=== PATIENT | male | born 1970 | race Caucasian/White ===

== ENCOUNTER 2020-05-05 13:56 | Emergency (ER) | payer SELFPAY ==
[2020-05-05] VITALS (7 sets, daily range): BP systolic 113–157; BP diastolic 86–106; PULSE 101–117; RESP 12–18; TEMP 36.7; O2SAT 96–100
--- NOTE | ~2020-05-05 | CT_ITS ---
EXAMINATION: CTA chest DATE: 05/05/2020 16:45 [employer] SALES ENERGY ADVISOR INDICATION: Chest pain TECHNIQUE: Computed tomographic angiography (CTA) of the chest was performed with 100 mL Omnipaque-35 0 intravenous contrast. The dose-length product was 257.03 mGy-cm. Maximum intensity projection 3D-re constructions of the aorta and other arteries were constructed by the technologist on a separate work station. Automated exposure control and iterative reconstruction technique were employed. COMPARISON: None. FINDINGS: Normal caliber thoracic aorta without aneurysm or dissection. Heart size normal. Small hiat al hernia. No thoracic lymphadenopathy. No significant pleural or pericardial effusion. Upper abdomen is unremarkable. No focal airspace consolidation. No pneumothorax. No endobronchial lesions. No susp icious pulmonary nodules or masses. There is lower cervical spondylosis. IMPRESSION: 1. Unremarkable CT angiogram of the chest. No evidence for aortic aneurysm or dissection. Reviewed, dictated and finalized at location A. R SALES ENERGY ADVISOR IMPRESSION: 1. Unremarkable CT angiogram of the chest. No evidence for aortic aneurysm or d issection.
--- NOTE | 2020-05-05 14:27 | ECG_ITS ---
Measurements Intervals [place] Rate: 114 P: 76 AL: 145 QRS: 91 QRSD: 108 T: 55 QT: 309 QTc: 426 Interpretive Statements SINUS TACHYCARDIA RIGHT AXIS DEVIATION INCOMPLETE RIGHT BUNDLE BRANCH BLOCK CANNOT RULE OUT SEPTAL INFARCT, AGE INDETERMINATE BASELINE ARTIFACT- I, III, AVL, AVF, V1 ABNORMAL ECG Electronically Signed On 05-05-2020 14:48:49 [place] by Luis Allison D.O.
--- NOTE | 2020-05-05 14:31 | ED.ARRPALP ---
HPI - Arrhythmia/Palpitations General Chief Complaint: Psychiatric Symptoms <Ross Low MD - Last Filed: 05/06/20 17:45> Stated Complaint: CP <Ross Low MD - Last Filed: 05/06/20 17:45> Time Seen by Provider: 05/05/20 14:07 <Ross Low MD - Last Filed: 05/06/20 17:45> History of Present Illness HPI narrative: History limited by poor historian and intoxication 49 yo male brought in by EMS for palpitations. He reports that he has had 3 days of palpitations, chest pain, abdominal pain, and vomiting. He also reports that he has been drinking for the past 3 days. He has not done anything to try and treat his symptoms. He was apparently being arrested when he decided that he needed to be seen for these symptoms. <Ross Low MD - Last Filed: 05/06/20 17:45> Related Data Home Medications: Home Medications Medication Instructions Recorded Confirmed No Home Medications 05/05/20 05/05/20 <Ross Low MD - Last Filed: 05/06/20 17:45> Allergies/Adverse Reactions: Allergies Allergy/AdvReac Type Severity Reaction Status Date / Time No Known Allergies Allergy Verified 05/05/20 14:56 <Ross Low MD - Last Filed: 05/06/20 17:45> Review of Systems Review of Systems: All systems reviewed & are unremarkable except as noted in HPI and below <Ross Low MD - Last Filed: 05/06/20 17:45> Constitutional: Constitutional: Denies fever(s) <Ross Low MD - Last Filed: 05/06/20 17:45> ENT: Denies sore throat <Ross Low MD - Last Filed: 05/06/20 17:45> Cardiovascular: Cardiovascular: Reports chest pain <Ross Low MD - Last Filed: 05/06/20 17:45> Respiratory: Respiratory: Reports dyspnea <Ross Low MD - Last Filed: 05/06/20 17:45> Gastrointestinal: Gastrointestinal: Reports abdominal pain, Reports nausea and Reports vomiting <Ross Low MD - Last Filed: 05/06/20 17:45> Genitourinary: Genitourinary: Denies dysuria <Ross Low MD - Last Filed: 05/06/20 17:45> Musculoskeletal: Musculoskeletal: Reports back pain <Ross Low MD - Last Filed: 05/06/20 17:45> Neurologic: Reports headache(s) <Ross Low MD - Last Filed: 05/06/20 17:45> PMFSH Social History Social History: Social History Smoking status: Current every day smoker Alcohol intake: current Gender identity (if verbalized by the patient): Male <Ross Low MD - Last Filed: 05/06/20 17:45> Exam Const: General: no acute distress and alert <Ross Low MD - Last Filed: 05/06/20 17:45> Nutritional Appearance: well nourished <Ross Low MD - Last Filed: 05/06/20 17:45> Orientation/consciousness: patient oriented x3 <Ross Low MD - Last Filed: 05/06/20 17:45> HENMT: Head: normal to inspection <Ross Low MD - Last Filed: 05/06/20 17:45> Chest: Chest palpation & inspection: normal inspection of the chest <Ross Low MD - Last Filed: 05/06/20 17:45> Resp: Effort & Inspection: normal respiratory effort <Ross Low MD - Last Filed: 05/06/20 17:45> Auscultation: clear to auscultation bilaterally <Ross Low MD - Last Filed: 05/06/20 17:45> Cardio: Rate: tachycardic <Ross Low MD - Last Filed: 05/06/20 17:45> Rhythm: regular rhythm <Ross Low MD - Last Filed: 05/06/20 17:45> GI: Inspection: non-distended <Ross Low MD - Last Filed: 05/06/20 17:45> Other: diffuse tenderness <Ross Low MD - Last Filed: 05/06/20 17:45> Skin: General skin exam: normal color <Ross Low MD - Last Filed: 05/06/20 17:45> Neuro: General: patient oriented x3, moves all extremities and CN's II-XI intact bilaterally <Ross Low MD - Last Filed: 05/06/20 17:45> Speech: Abnormal speech present slurred <Ross Long
--- NOTE | 2020-05-05 14:51 | PC.NURSE ---
Pt up off stretcher and out to desk multiple times requesting something to drink and food. States he's not nauseated at the present time. Explained need to obtain tests.
--- NOTE | 2020-05-05 15:05 | PC.NURSE ---
Pt continuously continuous still operator light and ambulatory to desk requesting something to eat and drink.
[2020-05-05 15:10] LABS: Basophils Absolute Auto 0.1 K/mm3 (0.0-0.1); Basophils Percent Auto 0.5 % (0.2-1.2); Eosinophils Percent Auto 0.1 % (0-4.4); Hematocrit 49.6 % (42.0-52.0); Hemoglobin 17.7 g/dL (14.0-18.0); Immature Granulocyte Absolute 0.03 K/mm3 (0.00-0.031); Immature Granulocyte Percent A 0.2 % (0-0.5); Lymphocytes Absolute Auto 2.62 K/mm3 (0.9-3.2); Lymphocytes Percent Auto 19.2 % (18.3-44.2); Mean Corpuscular HGB Conc 35.7 g/dl (32-36); Mean Corpuscular Hemoglobin 30.2 pg (26-34); Mean Corpuscular Volume 84.5 fl (80-100); Mean Platelet Volume 8.6 fl (7.4-10.4); Monocytes Absolute Auto 0.6 K/mm3 (0.1-0.6); Monocytes Percent Auto 4.3 % (2.6-8.5); Neutrophils Absolute Auto 10.3 K/mm3 (1.3-6.7); Neutrophils Percent Auto 75.7 % (45.5-73.1); Platelet Count Result 446 k/mm3 (150-375); Red Blood Count 5.87 M/mm3 (4.6-6.20); Red Cell Distribution Width 11.3 % (11.5-14.5); White Blood Count 13.6 K/mm3 (4.5-10.0)
[2020-05-05 15:21] LABS: Prothrombin Time 13.4 Seconds (11.1-14.7)
[2020-05-05 15:22] LABS: Partial Thromboplastin Time 24.9 SECONDS (22.3-36.8)
[2020-05-05 15:25] LABS: Alanine Aminotransferase 58 U/L (4-50); Albumin Level 4.8 g/dL (3.5-5.1); Alkaline Phosphatase 80 U/L (38-126); Anion Gap 12 mmol/L (8-16); Aspartate Amino Transferase 64 U/L (17-59); Bilirubin,Total 0.7 mg/dL (0.2-1.3); Blood Urea Nitrogen 14 mg/dL (9-20); Calcium 10.4 mg/dL (8.4-10.2); Carbon Dioxide 36 mmol/L (22-30); Chloride 96 mmol/L (98-107); Estimated CRCL calculation 77 ml/min; Estimated Glomerular Filt Rate > 60; Glucose 109 mg/dL (75-110); Lipase 291 U/L (23-300); Potassium 4.8 mmol/L (3.4-5.0); Sodium 144 mmol/L (137-145)
[2020-05-05 15:35] LABS: Troponin I < 0.012 ng/mL (0.000-0.034)
--- NOTE | 2020-05-05 15:41 | PC.NURSE ---
Pt noted to be ambulatory out of department, tells intake that he's going outside to smoke .
--- NOTE | 2020-05-05 15:56 | PC.NURSE ---
Pt assisted back to ED RM 2 via security. Pt laughing. Stands at the door and refuses to be hooked to monitor or sit on stretcher. Gait steady at this time. Pt again asking for food po.
[2020-05-05 15:58] LABS: Ethanol 342 mg/dL (<10)
--- NOTE | 2020-05-05 16:14 | PC.NURSE ---
JEAN-PIERRE Adam, at bedside to attempt IV.
--- NOTE | 2020-05-05 16:30 | PC.NURSE ---
Pt to CT via stretcher.
--- NOTE | 2020-05-05 17:07 | PC.NURSE ---
Pt's CTA negative per Facundo Alcantara RN. OK to order food tray per Dr. Low.
--- NOTE | 2020-05-05 17:45 | PC.NURSE ---
Pt ambulatory to bathroom for clean catch urine collection. Upon return to ED RM 2, pt states to this RN I need help. All I'm doing is gonna slit my wrist with something in this room. Or, maybe jump off a bridge. I need help . Psychosocial assessment and [place] severity scale completed. [place], agricultural economics professor aware and Rm 15 secured. Policy explained to patient and pt ambulatory to ED Rm 15 per his own will @ [id number].
--- NOTE | 2020-05-05 17:50 | PC.NURSE ---
Pt stating he is suicidal, He has nothing to live for, and that he was looking for something in the room to slit his wrists . Informed Timothy Grissom Rn about situation - and informed Dr Low. Pt moved to room 15 placed in green scrubs and sitter at bedside
--- NOTE | 2020-05-05 17:51 | PC.NURSE ---
Awaiting meal tray from cafeteria,
--- NOTE | 2020-05-05 18:05 | PC.NURSE ---
Report to JEAN-PIERRE Camara, and JEAN-PIERRE Vazquez, to continue care.
[2020-05-05 18:24] LABS: Amphetamine Screen Urine Negative (Negative); Barbiturate Screen Urine Negative (Negative); Benzodiazepines Screen Urine Negative (Negative); Cannabinoid Screen Urine Negative (Negative); Cocaine Screen Urine Negative (Negative); Methadone Screen Urine Negative (Negative); Opiate Screen Urine Negative (Negative); Phencyclidine Screen Urine Negative (Negative)
[2020-05-05 18:25] LABS: Add Urine Microscopic? NO; Appearance Urine Clear (Clear); Bilirubin Urine Negative (Negative); Blood Urine Negative (Negative); Color Urine Straw (Yellow); Glucose Urine UA Negative (Negative); Ketones Urine Negative (Negative); Leukocyte Esterase Ur Negative LEU/UL (Negative); Nitrate Urine Negative (Negative); Protein Urine Negative (Negative); Urobilinogen Urine Negative mg/dL (<2.0)
[2020-05-05 18:30] LABS: Specific Grav Ur > 1.060 (1.001-1.035)
[2020-05-05 20:45] LABS: Thyroid Stimulating Hormone 0.093 uIU/mL (0.465-4.680)
[2020-05-05] MEDS: ONDANSETRON HCL ODT 4 MG TABLET PO (23:30)
[2020-05-06] MEDS: LORazepam (*CRX) 0.5 MG TABLET PO (01:12)
[2020-05-06 01:23] VITALS: BP 129/92; PULSE 108; RESP 20; O2SAT 98
[2020-05-06 01:29] LABS: Ethanol 32 mg/dL (<10)
[2020-05-06 01:38] LABS: Troponin I < 0.012 ng/mL (0.000-0.034)
--- NOTE | 2020-05-06 01:56 | PC.NURSE ---
per dr kearney pt is medical cleared, crisis called for a eval
--- NOTE | 2020-05-06 03:41 | PC.NURSE ---
per crisis personnel pending [facility] and [facility] pending call back
[2020-05-06 05:24] VITALS: BP 144/89; PULSE 93; RESP 18; O2SAT 98
--- NOTE | 2020-05-06 06:34 | PC.NURSE ---
[facility] declined transfer - [facility] accepted transfer ETA [id number] Trip # [id number]
--- NOTE | 2020-05-06 08:49 | PC.NURSE ---
[facility] new ETA [id number]
[2020-05-06 09:29] VITALS: BP 163/92; PULSE 103; RESP 18; O2SAT 100
--- NOTE | 2020-05-06 10:00 | ECG_ITS ---
Measurements Intervals [place] Rate: 96 P: 62 IA: 129 QRS: 67 QRSD: 105 T: 43 QT: 346 QTc: 437 Interpretive Statements SINUS RHYTHM INCOMPLETE RIGHT BUNDLE BRANCH BLOCK BORDERLINE ECG Electronically Signed On 05-06-2020 11:13:36 ACCESS MANAGER by Luis Allison D.O.
[2020-05-07 19:30] LABS: SARS-CoV-2 RNA PCR Negative
== END 2020-05-06 09:33 ==
PROVIDERS: Emergency Medicine; Emergency Provider Emergency Medicine
DX: R07.89 Other chest pain (principal); R11.0 Nausea; R45.851 Suicidal ideations; Z20.828 Contact with and (suspected) exposure to other viral communicable diseases; F17.200 Nicotine dependence, unspecified, uncomplicated; R00.0 Tachycardia, unspecified; I45.10 Unspecified right bundle-branch block; R94.31 Abnormal electrocardiogram [ECG] [EKG]
CPT/HCPCS: 36415; 71275; 80053; 80307; 81003; 83690; 84436; 84443; 84484; 85025; 85610; 85730; 87635; 93005; 99285; A9270; C9803; Q9967; U0003